=== PATIENT | female | born 1995 | race African-American/Black ===

== ENCOUNTER 2024-07-15 16:10 | Emergency (ER) | payer OTHER ==
[2024-07-15 16:21] VITALS: BP 112/83; PULSE 78; RESP 20; TEMP 98.3; BMI 27.6
[2024-07-15] MEDS ORDERED: LIDOCAINE 4% PATCH TP ONE (16:40)
[2024-07-15] MEDS ORDERED: ACETAMINOPHEN 500 MG TABLET (FP) ONE (16:40)
[2024-07-15] MEDS ORDERED: KETOROLAC TROMETHAMINE 30 MG/1 ML VIAL ONE (16:40)
[2024-07-15] MEDS: LIDOCAINE 4% PATCH TP ONE (17:01)
[2024-07-15] MEDS: KETOROLAC TROMETHAMINE 30 MG/1 ML VIAL IM ONE (17:01)
[2024-07-15] MEDS: ACETAMINOPHEN 500 MG TABLET (FP) PO ONE (17:02)
[2024-07-15 18:35] LABS: HCV DIAGNOSTIC IN-HOUSE W/RFLX NON-REACTIVE (NONREACTIVE)
[2024-07-15 18:36] LABS: HIV INTERPRETATION NEGATIVE (NEGATIVE)
[2024-07-15] MEDS ORDERED: LIDOCAINE PATCH REMOVAL MC SCH (22:00)
== END 2024-07-15 18:57 | disposition home or self-care (01) ==
LOC: JERFT 16:10
PROC: 3E0233Z Introduction of Anti-inflammatory into Muscle, Percutaneous Approach (ICD-10-PCS; principal; 2024-07-15)
DX: M54.2 Cervicalgia (principal); M43.6 Torticollis; R51.9 Headache, unspecified; V43.52XA Car driver injured in collision with other type car in traffic accident, initial encounter; Y92.410 Unspecified street and highway as the place of occurrence of the external cause
CPT/HCPCS: 36415; 86803; 87389; 99284-25